=== PATIENT | male | born 1985 | race Caucasian/White ===

== ENCOUNTER 2018-05-14 11:31 | Emergency (ER) | payer MEDICAID ==
[~2018-05-14] VITALS: Ht 182.9 cm; Wt 77.3 kg
[2018-05-14] MEDS ORDERED: CefTRIAXone SODIUM 1 GM/VIAL IM ONE (12:15)
[2018-05-14] MEDS ORDERED: AMOX TR/POT CLAV 875 MG/125 MG TABLET PO ONE (12:15)
[2018-05-14] MEDS ORDERED: LIDOCAINE/PF 1% 2 ML VIAL IM ONE (12:15)
[2018-05-14] MEDS ORDERED: KETOROLAC TROMETHAMINE 30 MG/ML VIAL IM ONE (12:15)
[2018-05-14] MEDS ORDERED: HYDROCODONE/ACETAMINOPHEN 5-325 MG TABLET PO ONE (12:15)
[2018-05-14] MEDS ORDERED: PENICILLIN V POTASSIUM 500 MG TABLET PO ONE (13:00)
[2018-05-14 13:17] VITALS: BP 134/79
== END 2018-05-14 13:20 | disposition home or self-care (01) ==
LOC: EMS 11:33
DX: K04.01 Reversible pulpitis (principal); K05.10 Chronic gingivitis, plaque induced; R22.0 Localized swelling, mass and lump, head; F17.210 Nicotine dependence, cigarettes, uncomplicated; F12.90 Cannabis use, unspecified, uncomplicated
CPT/HCPCS: 96372; 99284; 99406; J0696; J1885; J3490